=== PATIENT | male | born 1985 | race Two or more races ===

== ENCOUNTER 2021-08-07 17:58 | Emergency (ER) | payer MEDICAID, SELFPAY ==
--- NOTE | ~2021-08-07 | XR_ITS ---
EXAMINATION: XR TIBIA AND FIBULA, RIGHT CLINICAL INFORMATION: Laceration to leg. COMPARISON: None TECHNIQUE: AP and lateral views of the right tibia and fibula were obtained. FINDINGS: Cortical irregularity and thickening of the proximal fibular diaphysis is present and has the appearance of chronic posttraumatic changes. No embedded radiopaque foreign bodies or soft tissue emphysematous changes identified. No acute fractures visualized. Soft tissue prominence is present along the lateral aspect of the tibia/fibula. XR/XR tibia fibula RT 2V IMPRESSION: *Soft tissue inflammatory changes along the lateral aspect of the right tibia/fibula. No embedded radiopaque foreign bodies or soft tissue emphysematous changes. *Chronic appearing posttraumatic deformity of the proximal right fibula.
[2021-08-07 18:03] VITALS: BP 147/87; PULSE 96; RESP 18; TEMP 37.1; O2SAT 96; BMI 35.7
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
[2021-08-07] MEDS: Amoxicillin/Potassium Clav 875 MG TABLET PO (20:40)
[2021-08-07] MEDS: Lidocaine HCl 2 % MPF 5 ML VIAL SUBCUT ×3 (20:40)
[2021-08-07] MEDS: oxyCODONE HCl Immed Release 5 MG TABLET 10 MG PO (20:40)
[2021-08-07] MEDS: Diphth,Pertus(ACell),Tet Adult 0.5 ML SYRINGE IM (20:42)
== END 2021-08-07 21:34 | disposition home or self-care (01) ==
PROVIDERS: Emergency Provider Internal Medicine; PCP Internal Medicine Geriatric Medicine
DX: S81.811A Laceration without foreign body, right lower leg, initial encounter (principal); W45.8XXA Other foreign body or object entering through skin, initial encounter; Y93.9 Activity, unspecified; Y92.828 Other wilderness area as the place of occurrence of the external cause; Y99.9 Unspecified external cause status
CPT/HCPCS: 12034; 73590; 90471; 90715; 99282; 99284

== ENCOUNTER 2021-10-13 07:47 | Outpatient (RCR) | payer MEDICAID, SELFPAY | END 2021-10-18 13:51 | disposition home or self-care (01) | LOC: HO.WCC 07:47 | PROVIDERS: PCP Internal Medicine Geriatric Medicine; Visit Provider Surgery | DX: S81.811D Laceration without foreign body, right lower leg, subsequent encounter (principal); F17.210 Nicotine dependence, cigarettes, uncomplicated; I10 Essential (primary) hypertension | CPT/HCPCS: 99213 ==

== ENCOUNTER 2022-11-22 16:04 | Outpatient (REF) | payer MEDICAID, SELFPAY | END 2022-11-22 16:05 | disposition home or self-care (01) | LOC: HO.HHCLNP 16:04 | PROVIDERS: Visit Provider Nurse Practitioner Primary Care | DX: R80.9 Proteinuria, unspecified (principal) | CPT/HCPCS: 82570 ==

== ENCOUNTER 2023-05-11 09:02 | Emergency (ER) | payer OTHER, SELFPAY ==
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
[2023-05-11 09:08] VITALS: BP 140/99; PULSE 85; RESP 18; TEMP 36.5; O2SAT 98; BMI 35.9
--- NOTE | 2023-05-11 09:49 | PC.NURSE ---
This rn present for genital exam with PA, patient tolerating well, translator and interpreter present
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
[2023-05-11 11:16] LABS: MANUAL DIFF FLAG NO
[2023-05-11 11:17] LABS: Basophils Absolute Auto 0.1 X10*3/uL (0.0-0.2); Basophils Percent Auto 0.4 % (0-2); Eosinophils Absolute Auto 0.1 X10*3/uL (0.0-0.4); Eosinophils Percent Auto 0.4 % (0-4); Hematocrit 44.4 % (42.0-52.0); Hemoglobin 15.4 g/dl (14.0-18.0); Imm Gran Abs Auto 0.06 X10*3/uL (0.00-0.03); Imm Gran Pct Auto 0.5 % (0.0-0.4); Lymphocytes Absolute Auto 1.5 X10*3/uL (1.2-4.9); Lymphocytes Percent Auto 11.5 % (20-40); Mean Corpuscular HGB Conc 34.7 g/dl (31.0-36.0); Mean Corpuscular Hemoglobin 29.3 pg (27.0-33.0); Mean Corpuscular Volume 84.6 fL (80.0-98.0); Mean Platelet Volume 8.5 fL (9.4-12.4); Monocytes Absolute Auto 1.1 X10*3/uL (0.1-1.2); Monocytes Percent Auto 8.4 % (2-11); Neutrophils Absolute Auto 10.3 x10*3/uL (2.0-8.3); Neutrophils Percent Auto 78.8 % (45-73); Platelet Count 299 X10*3/uL (160-400); Red Blood Count 5.25 X10*6/uL (4.60-5.80); Red Cell Distribution Width 13.5 % (11.0-16.0)
[2023-05-11 11:23] LABS: Prothrombin Time 12.1 SEC (11.1-13.3)
[2023-05-11 11:25] LABS: Partial Thromboplastin Time 29.6 SEC (26.0-36.8)
[2023-05-11 11:39] LABS: Alanine Aminotransferase 27 U/L (0-40); Albumin Level 4.5 g/dL (3.5-5.0); Alkaline Phosphatase 75 U/L (39-117); Anion Gap 15 (12-20); Aspartate Amino Transferase 18 U/L (5-37); Bilirubin Total 0.5 mg/dL (0.0-1.0); Blood Urea Nitrogen 14 mg/dL (9-16); Calcium 9.3 mg/dL (8.4-10.2); Carbon Dioxide 25 mmol/L (22-29); Chloride 105 mmol/L (96-108); Creatinine Clr Calc Pharmacy 146.6; Estimated Glomerular Filt Rate > 60; Glucose Random 92 mg/dL (60-115); Magnesium 2.4 mg/dL (1.6-2.6); Potassium 4.2 mmol/L (3.3-5.1); Sodium 141 mmol/L (135-145); Total Protein 7.6 g/dL (6.5-8.0)
[2023-05-11 11:49] LABS: Lipase 356 U/L (8-78)
[2023-05-11 13:28] VITALS: BP 141/94; PULSE 70; RESP 18; O2SAT 96
[2023-05-11] MEDS: 0.9 % Sodium Chloride 1,000 ML 999 ML IV (13:28)
[2023-05-11 14:51] VITALS: BP 137/84; PULSE 75; RESP 18; O2SAT 98
--- NOTE | 2023-05-11 14:52 | PC.NURSE ---
pressure dressing/romeo wrap to lower back applied with provider. Pt has swelling and discoloration to lower back on spine. states area is painful. awaits return call from [facility] for possible transfer. denies dizziness with standing. no neuro deficits. family present. aware of plan of care.
[2023-05-11] MEDS: fentaNYL citrate/PF 100 MCG/2 ML VIAL 50 MCG IVPUSH ×2 (15:28→16:43)
[2023-05-11 16:45] VITALS: BP 134/88; PULSE 74; RESP 18; O2SAT 96
--- NOTE | 2023-05-11 16:45 | PC.NURSE ---
ems here for transfer to [facility]> bedside report given.
--- NOTE | 2023-05-11 17:06 | PC.NURSE ---
multiple attempts to reach someone [place] [facility] [place] RN. dropped called, sent to various departments. Unable to pursue d/t department demands
== END 2023-05-11 17:08 | disposition short-term general hospital (02) ==
PROVIDERS: Physician Assistant Medical; Emergency Provider Emergency Medicine; PCP Internal Medicine Geriatric Medicine
DX: S30.0XXA Contusion of lower back and pelvis, initial encounter (principal); V43.52XA Car driver injured in collision with other type car in traffic accident, initial encounter; Y93.9 Activity, unspecified; Y92.410 Unspecified street and highway as the place of occurrence of the external cause; Y99.9 Unspecified external cause status; K85.90 Acute pancreatitis without necrosis or infection, unspecified; M54.50 Low back pain, unspecified; M25.561 Pain in right knee
CPT/HCPCS: 36415; 71260; 73562; 74177; 80053; 83690; 83735; 85025; 85610; 85730; 96361; 96374; 96376; 99285; J3010

== ENCOUNTER 2023-07-04 15:25 | Outpatient (AMB) | payer OTHER, SELFPAY ==
[2023-07-04 15:40] VITALS: BP 138/88; PULSE 92; BMI 35.9
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
== END 2023-07-04 16:01 | disposition home or self-care (01) ==
PROVIDERS: PCP Internal Medicine Geriatric Medicine; Visit Provider Surgery
DX: R22.2 Localized swelling, mass and lump, trunk (principal)
CPT/HCPCS: 99203

== ENCOUNTER → 2023-07-04 15:25 | Outpatient (BNVA) | payer OTHER, SELFPAY | PROVIDERS: PCP Internal Medicine Geriatric Medicine; Visit Provider Surgery | DX: R22.2 Localized swelling, mass and lump, trunk (principal) | CPT/HCPCS: 99202 ==

== ENCOUNTER 2023-07-09 15:26 | Outpatient (AMB) | payer OTHER, SELFPAY ==
--- NOTE | 2023-07-09 15:29 | MHC.OFFVIS ---
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 Pt c/o; reports no changes. 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 [facility] Medical History (Updated 07/09/23 @ 15:49 by Jorge Fulton MD) Seroma due to trauma Mass on back Social History Patient Tobacco Use Status: Never used Tobacco Office Procedures FNAB Details: He was in prone position. The area of the seroma was prepped and draped. Lidocaine 1% was used for local anesthesia. I then used a gauge 18 needle and this was advanced to this can until a seromatous collection was identified. I aspirated about 20 cc of this seromatous looking fluid. I then applied a Band-Aid He tolerated procedure well. I told him that this should be resorbed on its own down the line. I told him that if he has persistent problems in the future, he can come back to be re-evaluated. Informed consent given: Yes Consent signed: Yes Anesthesia: local Aspiration content: serous (Thin serosanguineous) Patient tolerated procedure: well Complications: No Assessment & Plan Assessment & Plan (1) Seroma due to trauma: Code(s): T79.2XXA - Traumatic secondary and recurrent hemorrhage and seroma, initial encounter Category: Medical Plan: The mass on the back was a seroma as confirmed by aspiration. I told him that this should be reabsorbed completely on its own with time. I did tell him that if he has problems down the line, he should come back to the office to be re-evaluated
== END 2023-07-09 15:56 | disposition home or self-care (01) ==
LOC: HO.HGS 15:26
PROVIDERS: PCP Internal Medicine Geriatric Medicine; Visit Provider Surgery
DX: T79.2XXA Traumatic secondary and recurrent hemorrhage and seroma, initial encounter (principal)
CPT/HCPCS: 10160

== ENCOUNTER → 2023-07-09 15:26 | Outpatient (BNVA) | payer OTHER, SELFPAY | PROVIDERS: PCP Internal Medicine Geriatric Medicine; Visit Provider Surgery | DX: T79.2XXA Traumatic secondary and recurrent hemorrhage and seroma, initial encounter (principal) | CPT/HCPCS: 10160 ==

== ENCOUNTER 2023-10-31 11:15 | Outpatient (REF) | payer OTHER, SELFPAY ==
[2023-10-31 13:18] LABS: MANUAL DIFF FLAG NO
[2023-10-31 13:36] LABS: Basophils Absolute Auto 0.1 X10*3/uL (0.0-0.2); Basophils Percent Auto 0.6 % (0-2); Eosinophils Absolute Auto 0.1 X10*3/uL (0.0-0.4); Eosinophils Percent Auto 1.6 % (0-4); Hematocrit 43.2 % (42.0-52.0); Hemoglobin 14.6 g/dl (14.0-18.0); Imm Gran Abs Auto 0.15 X10*3/uL (0.00-0.03); Imm Gran Pct Auto 1.7 % (0.0-0.4); Lymphocytes Absolute Auto 1.7 X10*3/uL (1.2-4.9); Lymphocytes Percent Auto 19.3 % (20-40); Mean Corpuscular HGB Conc 33.8 g/dl (31.0-36.0); Mean Corpuscular Hemoglobin 29.6 pg (27.0-33.0); Mean Corpuscular Volume 87.6 fL (80.0-98.0); Mean Platelet Volume 9.8 fL (9.4-12.4); Monocytes Absolute Auto 0.9 X10*3/uL (0.1-1.2); Neutrophils Percent Auto 66.8 % (45-73); Platelet Count 306 X10*3/uL (160-400); Red Blood Count 4.93 X10*6/uL (4.60-5.80); Red Cell Distribution Width 13.6 % (11.0-16.0)
[2023-10-31 13:48] LABS: Alanine Aminotransferase 25 U/L (0-40); Albumin Level 4.3 g/dL (3.5-5.0); Alkaline Phosphatase 73 U/L (39-117); Anion Gap 12 (12-20); Aspartate Amino Transferase 15 U/L (5-37); Bilirubin Total 0.2 mg/dL (0.0-1.0); Blood Urea Nitrogen 19 mg/dL (9-16); Calcium 9.2 mg/dL (8.4-10.2); Carbon Dioxide 24 mmol/L (22-29); Chloride 104 mmol/L (96-108); Estimated Glomerular Filt Rate > 60; Glucose Random 100 mg/dL (60-115); Lipase 92 U/L (8-78); Potassium 4.2 mmol/L (3.3-5.1); Sodium 136 mmol/L (135-145); Total Protein 7.4 g/dL (6.5-8.0)
== END 2023-10-31 11:16 | disposition home or self-care (01) ==
LOC: HO.HHCL 11:15
PROVIDERS: Visit Provider Student in an Organized Health Care Education/Training Program
DX: K85.90 Acute pancreatitis without necrosis or infection, unspecified (principal)
CPT/HCPCS: 36415; 80053; 83690; 85025

== ENCOUNTER 2025-03-13 12:36 | Emergency (ER) | payer OTHER, SELFPAY ==
[2025-03-13 12:41] VITALS: BP 148/87; PULSE 93; RESP 20; TEMP 36.2; O2SAT 95; BMI 35.4
--- NOTE | 2025-03-13 12:48 | ED.URI ---
HPI - URI/Sore Throat General Chief Complaint: Upper Respiratory Symptoms Stated Complaint: Headache, Congested, Diarrhea, Fever Time Seen by Provider: 03/13/25 17:40 Source: patient, RN notes reviewed and old records reviewed Mode of arrival: ambulatory History of Present Illness ED Provider: Lupe Sánchez PA-C HPI Narrative: 40-year-old male with no significant past medical history presenting to the ED complaining of headache, myalgias, congestion, decreased p.o. intake x2 days. Reports some abdominal discomfort and diarrhea. Denies known sick contacts, CP/SOB Related Data Previous Rx's ?Medication ?Instructions ?Recorded amoxicillin 875 mg-potassium 1 tab PO BID #14 tabs 08/07/21 clavulanate 125 mg tablet oxycodone 5 mg tablet 5 mg PO Q8H PRN pain #8 tabs 08/07/21 oseltamivir 75 mg capsule (Tamiflu) 75 mg PO Q12H 5 days #10 caps 03/13/25 Allergies Allergy/AdvReac Type Severity Reaction Status Date / Time No Known Allergies Allergy Verified 03/13/25 12:43 Review of Systems Review of Systems: Yes all other systems are reviewed and are negative Constitutional: Constitutional: Reports as per [facility] Past Medical History Attestation statement: The following information was validated with the patient. Source: old records reviewed Medical History Seroma due to trauma Mass on back Social History Social History Patient Tobacco Use Status: Never used Tobacco Advance Directives: No Advance Directives Information Provided: No Do you have a plan to hurt others: No Plan Physical Exam Vital Signs: Vital Signs: Last Vital Signs Temp 97.1 F 03/13/25 12:41 Pulse 93 03/13/25 12:41 Resp 20 03/13/25 12:41 BP 148/87 H 03/13/25 12:41 Pulse Ox 95 03/13/25 12:41 O2 Del Method Room Air 03/13/25 12:41 BMI result Body Mass Index 35.4 Const: General: cooperative, healthy appearing and no acute distress Orientation/consciousness: patient oriented x3 Limitations: no limitations HEENT: Head: Yes normal to inspection and Yes atraumatic Ears: hearing grossly normal bilaterally General nose exam: Normal external nose present Face and sinus: Yes normal facial exam Mouth: Normal oral and palatal mucosa present and no drooling Throat: Yes posterior oropharynx normal, Yes tonsils normal, Yes uvula midline, No uvula laterally displaced and No uvular edema Eyes: General: appearance normal, both eyes and all related structures EOM: EOMs intact bilaterally Neck: Neck: Yes normal visual inspection and Yes no meningeal signs Resp: Effort & Inspection: normal respiratory effort and no respiratory distress Auscultation: clear to auscultation bilaterally, no crackles and no wheezes Cardio: Rate: regular rate Heart sounds: S1 normal heart sound present and S2 normal heart sound present GI: Inspection: Yes normal to inspection Palpation (GI): Soft to palpation, nontender, no guarding and not rigid Skin: Rashes: no rashes Wounds: no wounds Neuro: General: patient oriented x3, tone normal and no meningeal signs Cranial nerves: Yes CN's II-XII intact bilaterally Gait exam (Neuro): Normal gait present Extrem: General: Yes normal to inspection Course Course Course Narrative: This is a Rapid Medical Exam performed in triage by Lupe Sánchez PA-C. Full HPI, ROS and PE to be performed by primary ED provider. 40 yo M presenting to the ED c/o RUIZ, fever, myalgias, congestion, decreased PO intake x2 days. Also reports abdominal pain & diarrhea. PE: NAD, nontoxic appearing, ambulating with steady gait. Plan: labs, UA, SARs, rapid strep 1757--labs reassuring. Influenza a positive Patient is interested in Tamiflu. Results discussed with patient including worrisome signs and symptoms and strict return precautions, and when to return to the emergency department. They verbalized understanding and feel safe for discharge at this time. Medical Decision Making Medical Decision Making MDM Narrative: 40-year-old male with no significant past medical history presenting to the ED complaining of headache, myalgias, congestion, decreased p.o. intake x2 days. On exam vital signs stable, NAD, nontoxic appearing, lungs CTA, abdomen is soft and nontender. Concern for viral illness. Lower suspicion for acute pneumonia, acute cholecystitis/pancreatitis. No evidence of AUTOMATIC TYPEWRITER INSPECTOR/retropharyngeal abscess Plan: Viral testing, rapid strep, labs Please refer to course for remaining clinical decision making, interpretation of labs/imaging results, and discussions with consultants and/or family members. Differential Diagnosis Differential Diagnoses: The differential diagnosis associated with the presentation includes As above Admission/Observation Consideration of admission/observation: Escalation of care including admission/observation considered Lab Data MDM Lab Attestation statement: I reviewed the patient's lab results. 03/13/25 13:51 03/13/25 13:51 Labs: Lab Results 03/13/25 Range/Units 13:51 WBC 6.6 (4.8-10.8) X10*3/uL RBC 5.24 (4.60-5.80) X10*6/uL Hgb 15.4 (14.0-18.0) g/dl Hct 44.8 (42.0-52.0) % MCV 85.5 (80.0-98.0) fL MCH 29.4 (27.0-33.0) pg MCHC 34.4 (31.0-36.0) g/dl RDW 13.2 (11.0-16.0) % Plt Count 220 D (160-400) X10*3/uL MPV 8.4 L (9.4-12.4) fL Immature Gran % (Auto) 0.8 H (0.0-0.4) % Neut % (Auto) 72.2 (45-73) % Lymph % (Auto) 7.5 L (20-40) % [place] % (Auto) 18.9 H (2-11) % Eos % (Auto) 0.0 (0-4) % Baso % (Auto) 0.6 (0-2) % Lymph # (Auto) 0.5 L (1.2-4.9) X10*3/uL [place] # (Auto) 1.2 (0.1-1.2) X10*3/uL Eos # (Auto) 0.0 (0.0-0.4) X10*3/uL Baso # (Auto) 0.0 (0.0-0.2) X10*3/uL Abs Immat Gran (auto) 0.05 H (0.00-0.03) X10*3/uL Absolute Neuts (auto) 4.8 (2.0-8.3) x10*3/uL Absolute Nucleated RBC 0.000 (0.0-0.012) X10*3/uL Nucleated RBC % (auto) 0.0 (0.0-0.2) /100WBC Sodium 136 (135-145) mmol/L Potassium 3.8 (3.3-5.1) mmol/L Chloride 104 (96-108) mmol/L Carbon Dioxide 24 (22-29) mmol/L Anion Gap 12 (12-20) BUN 14 (9-16) mg/dL Creatinine 0.97 (0.5-1.4) mg/dL Estim Creat Clear Calc 128.1 Estimated GFR > 60 Random Glucose 102 (60-115) mg/dL Calcium 9.2 (8.4-10.2) mg/dL Magnesium 2.2 (1.6-2.6) mg/dL Total Bilirubin 0.3 (0.0-1.0) mg/dL Direct Bilirubin 0.1 (0.0-0.5) mg/dL AST 35 (5-37) U/L ALT 54 H (0-40) U/L Alkaline Phosphatase 74 (39-117) U/L Total Protein 7.4 (6.5-8.0) g/dL Albumin 4.8 (3.5-5.0) g/dL Lipase 15 (8-78) U/L Influenza Type A (PCR) POSITIVE A (Negative) Influenza Type B (PCR) NEGATIVE (Negative) RSV RNA Qual (PCR) NEGATIVE (Negative) SARS-CoV-2 RNA (RT-PCR) NEGATIVE (Negative) S. pyogenes GrpA LOLY Negative (Negative) Radiology Impression Discussion of test interpretation with radiology: I have reviewed the radiologist's reading. External Record Review External record reviewed: Inpatient record, Office record, Outpatient record, Prior outpatient labs, Prior outpatient radiology, Primary care record and Outside ED record Tests considered The following testing was considered but not selected: As above Prescription Management I considered prescription management with: Pain Medication and Antibiotic Chronic Conditions Patient?s care impacted by: Other Social Determinants Patient?s care significantly limited by Social Determinants of Health including: Other Social Determinant of Health Discharge Plan Discharge Clinical Impression: Influenza A Patient Disposition: Home, Self-Care Instructions: Influenza (DC) Additional Instructions: You have the flu. Tamiflu as an antiviral medication, please take as prescribed until completion. You are contagious. No antibiotics are indicated at this time Make sure you are staying hydrated. Drink plenty of fluids. Rest Alternate Tylenol and Motrin at home as needed for body aches and fever Follow-up with your doctor. If symptoms persist or worsen return to the emergency department *If you are a child & not tolerating liquid or urinating for more than 6 hours, or fevers are uncontrolled with medications at home, return to the emergency department* Prescriptions: New oseltamivir [Tamiflu] 75 mg capsule 75 mg PO Q12H 5 Days Qty: 10 0RF No Action amoxicillin-pot clavulanate 875-125 mg tablet 1 tab PO BID Qty: 14 0RF oxycodone 5 mg tablet 5 mg PO Q8H PRN (Reason: pain) Qty: 8 0RF Referrals: Name,MD Nicanor [Primary Care Provider, Internal Medicine] - 1 week Stand Alone Forms: Work/School Release Print Language: Latvian
[2025-03-13 13:54] LABS: MANUAL DIFF FLAG NO
[2025-03-13 13:57] LABS: Hematocrit 44.8 % (42.0-52.0); Hemoglobin 15.4 g/dl (14.0-18.0); Imm Gran Abs Auto 0.05 X10*3/uL (0.00-0.03); Imm Gran Pct Auto 0.8 % (0.0-0.4); Lymphocytes Absolute Auto 0.5 X10*3/uL (1.2-4.9); Mean Corpuscular HGB Conc 34.4 g/dl (31.0-36.0); Mean Corpuscular Hemoglobin 29.4 pg (27.0-33.0); Mean Corpuscular Volume 85.5 fL (80.0-98.0); NRBC Abs Auto 0.000 X10*3/uL (0.0-0.012); NRBC Pct Auto 0.0 /100WBC (0.0-0.2); Platelet Count 220 X10*3/uL (160-400); Red Blood Count 5.24 X10*6/uL (4.60-5.80); White Blood Count 6.6 X10*3/uL (4.8-10.8)
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
--- OUTSIDE RECORDS SUMMARY | 2025-03-13 13:58 | XMS_ITS | Encounter Summary ---
Author Organization [employer] Address [address] [facility] [address] [place] [address] Care Team Providers Care Transition Nurse Name Role Phone Name, Nicanor ANTUNEZ Primary Care Provider [phone] Reason for Visit * Reason Onset Date Comments Referral 06/12/2023 Encounter Details Date Type Department Care Team ([facility] Contact Info) Description 06/12/2023 Telephone [facility] [address] [place] [address] Name, MD Nicanor [address] [place] [address] Referral Social History Tobacco Use Types Packs/Day Years Used Date Smoking Tobacco: Some Days Cigarettes Smokeless Tobacco: Never Alcohol Use Standard Drinks/Week Comments Not Currently [...] before you got money to buy more: Never True 01/22/2023 Within the past 12 months,th e food you bought just didn't last and you didn't have enough money to get more: Never True 08/2022 Transportation Answer Date Recorded In the past 12 months, has l ack of transportation kept you from medical appts, meetings, work or from getting things needed for daily living? No 01/22/2023 Utilities Answer Date Recorded In the past 12 months, has t he electric, gas, oil or water company threatened to shut off services in your home? No 01/22/2023 Depression Answer Date Recorded Patient Health Questionnaire-2 Score 0 12/26/2022 Sex and Gender Information Value Date Recorded Sex Assigned at Male 01/16/2022 10:39 AM EDT Legal Sex Male 10:39 AM EDT Gender Identity Male 01/16/2022 10:39 AM EDT Sexual Orientation Straight 01/16/2022 10 :39 AM EDT documented as of this encounter Miscellaneous Notes * Telephone Encounter - Gemma Puente - 06/12/2023 10:11 AM EDT Tc from Bre with [employer] services director of casework requesting status on General Surgery referral . [employer] Manager did inform insurance issue written on the referral jf Rizo advice is a work related issueand should be bill through the worker comp and provided clam # [id number]. Any questions please contact bre at [phone]. documented in this encounter Plan of Treatment Upcoming Encounters Date Type Department Care Team (Late st Contact Info) Description 04/14/2025 9:30 AM EST Office Visit [facility] [address] [place] [phone] Name, MD Nicanor [address] [place] [phone] documented as of this encounter Goals Goal Patient Goal Type Associated Problems Recent Progress Patient-Stated? Author Blood Pressure < 140/90 Blood Pressure 132/80( 024 11:11 AM EDT) No Puia, Anali, PharmD Record your blood pressure once per day Blood Pressure No Puia, Anali, PharmD documented as of this encounter Visit Diagnoses Not on filedocumented in this encounter Additional Health Concerns Assessment Noted Time PHQ-9 Depression Total Score: 0 12/27/19 23 9:29 AM EDT documented as of this encounter Care Teams Transition Nurse Relationship Specialty Start Date End Date NameNicanor MD [address] [place] [id number] PCP - General Family Medicine 01/31/21 documented as of this encounter
[2025-03-13 14:03] LABS: Strep A Nucleic Acid Negative (Negative)
[2025-03-13 14:12] LABS: Alanine Aminotransferase 54 U/L (0-40); Albumin Level 4.8 g/dL (3.5-5.0); Alkaline Phosphatase 74 U/L (39-117); Anion Gap 12 (12-20); Aspartate Amino Transferase 35 U/L (5-37); Blood Urea Nitrogen 14 mg/dL (9-16); Calcium 9.2 mg/dL (8.4-10.2); Carbon Dioxide 24 mmol/L (22-29); Chloride 104 mmol/L (96-108); Creatinine Clr Calc Pharmacy 128.1; Estimated Glomerular Filt Rate > 60; Lipase 15 U/L (8-78); Magnesium 2.2 mg/dL (1.6-2.6); Potassium 3.8 mmol/L (3.3-5.1); Sodium 136 mmol/L (135-145); Total Protein 7.4 g/dL (6.5-8.0)
[2025-03-13 14:35] LABS: Resp Syncy Virus RNA Qual PCR NEGATIVE (Negative); SARS COV2 PCR INHOUSE NEGATIVE (Negative)
[2025-03-13 18:27] VITALS: BP 148/87; PULSE 93; RESP 20; TEMP 36.2; O2SAT 95
== END 2025-03-13 18:27 | disposition home or self-care (01) ==
PROVIDERS: Physician Assistant; Emergency Provider Emergency Medicine; PCP Internal Medicine Geriatric Medicine
DX: R51.9 Headache, unspecified (principal); J10.1 Influenza due to other identified influenza virus with other respiratory manifestations; R50.9 Fever, unspecified; R19.7 Diarrhea, unspecified
CPT/HCPCS: 80048; 80076; 83690; 83735; 85025; 87637; 87651; 99282; 99283